=== PATIENT | female | born 1995 | race Caucasian/White ===

== ENCOUNTER 2021-10-18 13:01 | Outpatient (CLI) | payer SELFPAY ==
[2021-10-18 13:37] VITALS: BMI 26.8
[2021-10-18 13:42] LABS: Microscopic, Urine URINE MICROSCOPIC (MICROSCOPIC)
[2021-10-18 13:47] VITALS: BMI 26.8
[2021-10-18 14:00] VITALS: BP 130/86; PULSE 86; RESP 20; TEMP 37; O2SAT 97
[2021-10-18 14:09] LABS: Appearance,Urine CLEAR (Clear); Bacteria,Urine Trace /lpf; Bilirubin,Urine Negative (Negative); Blood, Urine 1+ (Negative); Color,Urine YELLOW (Yellow); Glucose,Urine (UA) Negative (Negative); Ketones,Urine Negative (Negative); Leukocyte Esterase,Urine 1+ (Negative); Nitrate,Urine Negative (Negative); Protein,Urine Negative (Negative); Urobilinogen,Urine 0.2 EU/dl (0.2)
[2021-10-18 14:12] LABS: Barbiturates Screen,Urine Negative ng/ml (<200); Benzodiazepines Screen,Urine Negative ng/ml (<200)
[2021-10-18 14:13] LABS: Amphetamine/Metha Screen,Urine Negative ng/ml (<1000)
[2021-10-18 14:14] LABS: Cannabinoid Screen,Urine Negative ng/ml (<50); Cocaine Screen,Urine Negative ng/ml (<300)
[2021-10-18 14:15] LABS: Methadone Screen,Urine Negative ng/ml (<300)
[2021-10-18 14:16] LABS: Opiate Screen,Urine Negative ng/ml (<300); Phencyclidine Screen,Urine Negative ng/ml (<25)
== END 2021-10-18 15:30 | disposition home or self-care (01) ==
LOC: OBOUT 13:02 → OB 13:04
PROVIDERS: PCP Nurse Practitioner Family; Visit Provider Nurse Practitioner Obstetrics & Gynecology
DX: Z34.90 Encounter for supervision of normal pregnancy, unspecified, unspecified trimester (principal)
CPT/HCPCS: 59025; 80305; 81001; 87086; G0463

== ENCOUNTER → 2022-11-15 17:00 | Outpatient (CLI) | payer SELFPAY | PROVIDERS: PCP Obstetrics & Gynecology; Visit Provider Obstetrics & Gynecology | DX: Z34.90 Encounter for supervision of normal pregnancy, unspecified, unspecified trimester (principal) | CPT/HCPCS: 87086 ==